=== PATIENT | female | born 1960 | race Caucasian/White ===

== ENCOUNTER 2016-08-29 21:16 | Emergency (ER) | payer OTHER ==
[~2016-08-29] VITALS: Ht 165.1 cm; Wt 56.7 kg
[~2016-08-29 21:16] MED LIST: DILANTIN100 MG PO; FLEXERIL PO; HYDROCHLOROTHIA25 M2 PO; MOBIC15 MG PO; NEURONTIN 400400 M1 PO; OMEPRAZOLE40 MG PO; OXYCODONE-ACET1 EACH PO; PRAVASTATIN SOD80 MG PO; REMERON15 MG PO; TOPROL XL100 MG PO
[2016-08-29] MEDS ORDERED: CENTANY30 GM TP (21:37)
[2016-08-29] MEDS ORDERED: KEFLEX500 MG PO (21:37)
[2016-08-29] MEDS ORDERED: MOBIC15 MG PO (21:38)
== END 2016-08-29 21:42 | disposition home or self-care (01) ==
LOC: ER 21:16
DX: T22.011A Burn of unspecified degree of right forearm, initial encounter (principal); L03.113 Cellulitis of right upper limb; I63.9 Cerebral infarction, unspecified; I10 Essential (primary) hypertension; F17.210 Nicotine dependence, cigarettes, uncomplicated; X08.8XXA Exposure to other specified smoke, fire and flames, initial encounter; Y93.89 Activity, other specified; Y92.89 Other specified places as the place of occurrence of the external cause; Y99.9 Unspecified external cause status